=== PATIENT | female | born 1935 | race Caucasian/White ===

== ENCOUNTER 2019-01-17 10:40 | Inpatient (IN) ==
--- NOTE | 2019-01-17 11:10 | PROVIDER DOCUMENTATION ---
HPI-Musculoskeletal Pain/Inj - GENERAL Chief Complaint: Extremity Pain Stated Complaint: HIP / LEG PAIN Time Seen by Provider: 01/17/19 10:58 Source: patient - HX OF PRESENT ILLNESS-MUSKULOSKELTAL Nature of Presenting Problem: Patient is an 83yo F who presents w/ c/o R hip and leg pain that began yesterda y. Patient denies any known injury. Reports she is unable to bear weight on her R leg. States pain in R leg radiates from hip to above her R knee. Reports she took Tylenol yesterday without improvement. Sensation intact. +2 R dorsalis pedis pulse. Patient denies any back pain, incontinence, fever/chills, CP, or SOB. Non-toxic in appearance. Quality of Pain: reports: aching Severity in ED: moderate Onset/Duration: 24 hours ago Timing: still present Modifying Factors: improves with: lying down, rest. worse with: movement, palpation Any recent injury?: No Locality of Occurance: Home Similar Symptoms Previously?: No Recently seen or treated by another doctor?: No - HIP/PELVIS PAIN/INJURY Hip Pain Location: reports: hip (R) Pain Radiation: reports: upper legs (above R knee) Context / Method of Injury: reports: unknown Associated Symptoms: reports: weakness in legs/feet. denies: loss of bladder control, loss of bowel control, lower back pain, numbness in legs/feet, sensory/motor loss, tingling in legs/feet Review of Systems - Adult - REVIEW OF SYSTEMS - ADULT Constitutional: reports: no symptoms reported. denies: chills, fever Eyes: reports: no symptoms reported Ears, Nose, Mouth & Throat: reports: no symptoms reported Cardiovascular: reports: no symptoms reported. denies: chest pain, palpitations Respiratory: reports: no symptoms reported. denies: cough, shortness of breath Gastrointestinal: reports: no symptoms reported. denies: abdominal pain, nausea, vomiting Genitourinary: reports: no symptoms reported Musculoskeletal: reports: see HPI, joint pain, muscle weakness Integumentary: reports: no symptoms reported Neurological: reports: no symptoms reported. denies: dizziness/vertigo, headac he/migraines Psychiatric: reports: no symptoms reported Endocrine: reports: no symptoms reported Past History - Adult - PAST MEDICAL HISTORY-ADULT Review of Records: reports: Nursing Assessment Review, Medications Reviewed, Social history reviewed & non-contributory. - IMMUNIZATION STATUS Childhood Immunizations: See Nurse Assessment Flu Vaccine: See Nurse Assessment - FAMILY HISTORY Family History: reviewed, not pertinent - SOCIAL HISTORY Smoking: quit greater than 1 year Physical Exam-Injury Related - Physical Exam-Injury Related Initial Vital Signs Reviewed: Yes General Appearance: appears well, alert, no apparent distress. negative: lethargic, slow to respond, obtunded Eyes: PERRL/EOMI, pink conjunctivae. negative: EOM palsy, scleral icterus Head, Ears, Nose, Mouth & Throat: normocephalic/atraumatic, moist mucous membranes Neck: full range of motion, supple, normal inspection. negative: limited range of motion Respiratory: chest non-tender, lungs clear, normal breath sounds, no pleuratic chest pain, no respiratory distress, no accessory muscle use. negative: crackles, rales, rhonchi, stridor, retractions, splinting Cardiovascular: regular rate, rhythm Peripheral Pulses: dorsalis-pedis (R): 2+, dorsalis-pedis (L): 2+ Back Exam: normal inspection, no CVA tenderness, no vertebral tenderness. negative: vertebral tenderness Extremity: normal inspection, no pedal edema, no calf tenderness, normal capillary refill, tenderness (R hip point tenderness). negative: normal gait (unable to bear weight R leg), deformity, erythema, swelling Integumentary: normal color, warm/dry. negative: cyanosis, jaundice, pallor Neurologic: grossly normal. negative: aphasia, EOM palsy Psych/Mental Status: normal mood/affect, normal thought content, normal thought process, oriented x 3 - Glascow Coma Score Best Eye Response (Dianelys): (4) open spontaneously Best Verbal Response (Prince): (5) oriented Best Motor Response (Dianelys): (6) obeys commands Prince Total: 15 Progress - PLAN OF CARE/RESULTS Progress/Plan/Lab Results: Vital Signs - 8 hr 01/17/19 10:41 01/17/19 15:17 Temperature 98.2 F 98 F Pulse Rate 74 76 Respiratory Rate 18 18 Blood Pressure 122/48 176/74 O2 Sat by Pulse Oximetry 95 94 L Laboratory Results - last 24 hr 01/17/19 01/17/19 01/17/19 11:20 14:01 14:20 WBC 3.93 L RBC 3.34 L Hgb 10.3 L Hct 32.5 L MCV 97.3 MCH 30.8 MCHC 31.7 L RDW Std Deviation 13.2 Plt Count 127 L MPV 11.2 H Immature Gran % (Auto) 0.0 Neut % (Auto) 58.9 Lymph % (Auto) 22.1 [place] % (Auto) 12.7 H Eos % (Auto) 5.3 Baso % (Auto) 1.0 H Immature Gran # (Auto) 0.00 Neut # (Auto) 2.31 Lymph # (Auto) 0.87 L [place] # (Auto) 0.50 Eos # (Auto) 0.21 Baso # (Auto) 0.04 PT INR PTT (Actin FS) Sodium Potassium Chloride Carbon Dioxide Anion Gap BUN Creatinine Estimated GFR/1.73 m2 BUN/Creatinine Ratio Glucose Calculated Osmolality Calcium Total Bilirubin AST ALT Alkaline Phosphatase Total Protein Albumin Globulin Albumin/Globulin Ratio Urine Source CLEAN CATCH CATH Urine Color YELLOW YELLOW Urine Clarity SL. CLOUDY A CLEAR Urine pH 5.0 8.0 Ur Specific Belle 1.015 1.010 Urine Protein NEGATIVE NEGATIVE Urine Ketones NEGATIVE NEGATIVE Urine Blood NEGATIVE NEGATIVE Urine Nitrite NEGATIVE NEGATIVE Urine Bilirubin NEGATIVE NEGATIVE Urine Urobilinogen NORMAL NORMAL Urine Microscopic RBC Not Reportable <10 Urine WBC TRACE A NEGATIVE Urine Microscopic WBC <10 Ur Epithelial Cells <10 <10 Urine Crystals NONE SEEN Urine Bacteria NEGATIVE Urine Casts NONE SEEN Urine Yeast NONE SEEN Urine Glucose NEGATIVE NEGATIVE 01/17/19 01/17/19 14:20 14:20 WBC RBC Hgb Hct MCV MCH MCHC RDW Std Deviation Plt Count MPV Immature Gran % (Auto) Neut % (Auto) Lymph % (Auto) [place] % (Auto) Eos % (Auto) Baso % (Auto) Immature Gran # (Auto) Neut # (Auto) Lymph # (Auto) [place] # (Auto) Eos # (Auto) Baso # (Auto) PT 13.3 INR 0.96 PTT (Actin FS) 37.8 Sodium 143 Potassium 4.1 Chloride 107 Carbon Dioxide 26 Anion Gap 10 BUN 20 Creatinine 0.7 Estimated GFR/1.73 m2 > 60 BUN/Creatinine Ratio 29 Glucose 103 Calculated Osmolality 288 Calcium 9.3 Total Bilirubin 0.30 AST 78 H ALT 33 Alkaline Phosphatase 117 H Total Protein 6.7 Albumin 4.0 Globulin 3.0 Albumin/Globulin Ratio 1.0 Urine Source Urine Color Urine Clarity Urine pH Ur Specific Belle Urine Protein Urine Ketones Urine Blood Urine Nitrite Urine Bilirubin Urine Urobilinogen Urine Microscopic RBC Urine WBC Urine Microscopic WBC Ur Epithelial Cells Urine Crystals Urine Bacteria Urine Casts Urine Yeast Urine Glucose Orders Category Date Time Status Admit - [facility] Routine AdmDCTranf 01/17/19 14:22 Active Activity - Strict Bedrest ORDERED Care 01/17/19 13:26 Active Apply Mechanical Device [QM] ORDERED Care 01/17/19 15:17 Active DVT/PE Risk Assess/Protocol [QM] ORDERED Care 01/17/19 15:17 Active FSBS/Accucheck Result AC + HS Care 01/17/19 15:17 Active Miranda Cath Insertion ORDERED Care 01/17/19 13:26 Active Intake and Output-Strict ORDERED Care 01/17/19 15:17 Active Nursing- MD Consult Request ROUTINE Care 01/17/19 14:07 Active Saline Loc NOW Care 01/17/19 13:14 Completed Vital Signs Order ROUTINE Care 01/17/19 15:17 Active Z-Document. for Tele Applied ORDERED Care 01/17/19 15:21 Active Physician/Provider Consults Routine Cons 01/17/19 14:07 Ordered NPO Diet 01/17/19 13:26 Active XRAY PELVIS W/HIP 2-3VW RT [RAD] Stat Exams 01/17/19 11:05 Completed BASIC METABOLIC PANEL [CHEM] Routine Lab 01/18/19 06:00 Ordered CBC WITH DIFF [HEME] Routine Lab 01/18/19 06:00 Ordered CBC WITH ELECTRONIC DIFF [HEME] Stat Lab 01/17/19 14:20 Completed COMPREHENSIVE METABOLIC PANEL [CHEM] Stat Lab 01/17/19 14:20 Completed MAGNESIUM [CHEM] Routine Lab 01/18/19 06:00 Ordered PROTIME WITH INR [COAG] Routine Lab 01/18/19 06:00 Ordered PROTIME WITH INR [COAG] Stat Lab 01/17/19 14:20 Completed PTT [COAG] Stat Lab 01/17/19 14:20 Completed TSH Routine Lab 01/18/19 06:[address] W/POSS RFLX CULT [URINALYSIS] Stat Lab 01/17/19 11:[address] W/POSS RFLX CULT [URINALYSIS] Stat Lab 01/17/19 14:01 Completed 0.9% Sodium Chloride Inj [Ns] 1,000 ml Med 01/17/19 15:30 Discontinued IV 75 mls/hr Acetaminophen [Tylenol] Med 01/17/19 15:17 Ordered 650 mg PO Q6H PRN PRN Morphine Med 01/17/19 15:23 Ordered 2 mg IV Q3H PRN PRN Omeprazole [Prilosec] Med 01/18/19 09:00 Ordered 40 mg PO DAILY Ondansetron [Zofran] Med 01/17/19 15:17 Ordered 4 mg IV Q4H PRN PRN Oxygen Device Routine Oth 01/17/19 15:17 Active Telemetry [OM.EQ] Routine Oth 01/17/19 15:17 Active EKG [EKG] Stat Ther 01/17/19 13:14 Ordered Transfer/Admit Order [TRANSFER] Routine Transfer 01/17/19 14:22 Ordered Imaging results and plan of care discussed with patient. Patient notified of R femoral head fx and need for operative fixation. Patient notified that Ortho doctor content assistant, Dr. Juarez, was paged. Patient reports she already has an Orthopedic doctor in [place] who has performed her previous Orthopedic surgeries. Patient requests transfer to another hospital so her Orthopedic doctor can perform the operative fixation. Dr. Diop ([facility] order caller) reports that [facility] does not operate at any other hospital than [facility]. Patient refuses admission to [place] d/ negative past experience. Patient reports she will stay and be admitted to and have our Ortho perform fixation. Dr. uJarez paged. Dr. Juarez requests patient be transferred and admitted to Hospitalist for Operative Fixation. [facility] Hospitalist paged and will transfer patient to . Pre-Op labs ordered demonstrate stable anemia and leukopenia, which appear to be chronic but improving since last labs patient had drawn here. Other labs grossly unremarkable. Result Diagrams: 01/17/19 14:20 01/17/19 14:20 - XRAY 1 XRAY: Right XRAY Study: Pelvis, Hip Impression: See EMR Report ([facility] - [address], [address], [place] [address] [facility] - [address] [place] [address] Department of Imaging Patient: KRYSTAL MAGANA Date: 01/17/19MR#: [id number] : 8ADM [facility] [id number] Age/Sex: 83/FRoom/Bed: Loc: P.ED Ordering Physician: Tiffanie Barnes Family Physician: Mandy Orellana MD Reason for Procedure: Pain; unable to bear weight Signed EXAM: XRAY PELVIS W/HIP 2-3VW RT 01/17/2019 HISTORY: Pain; unable to bear weight TECHNIQUE: AP pelvis and right hip three views COMMENT: There is generalized osteopenia. There is joint space narrowing in both hips. There is an apparent minimally displaced subcapital fracture of the right femoral neck. IMPRESSION: Right femoral neck fracture. 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 Juarez, Ortho Time Discussed: 13:32 Reason/Comments: R femoral head fx Consult Disposition: Admit (admit to hospitalist at for operative fixation; Ann will consult), other #3 Consult: Dr. Mckenna, Hospitalist Time Discussed: 13:40 Reason/Comments: R femoral head fx Consult Disposition: Admit (Ann will consult) Departure - Departure Date of Disposition Decision: 08/11/19 Time of Disposition Decision: 13:40 DIAGNOSIS: Unable to bear weight Fracture of femoral head Qualifiers: Encounter type: initial encounter Fracture type: closed Laterality: right Qualified Code(s): S72.051A - Unspecified fracture of head of right femur, initial encounter for closed fracture Osteopenia Qualifiers: Osteopenia location: unspecified Qualified Code(s): M85.80 - Other specified disorders of bone density and structure, unspecified site Disposition: ADMITTED INPATIENT 09 Certified Medical Emergency: Emergent Condition: Stable - Critical Care Note This patient required my direct & personal management of CC.: No Attestation - Physician/ OLIVIA Attestation Patient care was provided by Advanced Practice Provider:: Yes Advanced Practice Provider:: Tiffanie Barnes Advanced Practice Provider documentation review:: The Mid-level provider documentation, treatment plan and medical decision making was reviewed by the physician who agrees with all treatment and medical decision making by the MLP. The physician spent face to face time with patient:: No Advanced Practice Provider documentation review:: Supervising physician onsite and consulted in the evaluation and care of this patient. The physician did not have a face to face encounter with the patient.
--- NOTE | 2019-01-17 11:52 | Diag Imaging Result Doc PS360 ---
EXAM: XRAY PELVIS W/HIP 2-3VW RT 01/17/2019 HISTORY: Pain; unable to bear weight TECHNIQUE: AP pelvis and right hip three views COMMENT: There is generalized osteopenia. There is joint space narrowing in both hips. There is an apparent minimally displaced subcapital fracture of the right femoral neck. IMPRESSION: Right femoral neck fracture. Electronically signed by Casey Malagon 01/17/2019 11:50 AM
[2019-01-17 12:13] LABS: BILIRUBIN URINE NEGATIVE (NEGATIVE); BLOOD URINE NEGATIVE (NEGATIVE); CLARITY SL. CLOUDY (CLEAR); COLOR YELLOW; GLUCOSE URINE NEGATIVE (NEGATIVE); KETONE URINE NEGATIVE (NEGATIVE); LEUKOCYTES URINE TRACE (NEGATIVE); NITRITE URINE NEGATIVE (NEGATIVE); PROTEIN URINE NEGATIVE (NEGATIVE); SP GRAVITY URINE 1.015; UROBILINOGEN URINE NORMAL
[2019-01-17 12:28] LABS: URINE EPITHELIAL CELLS <10 /HPF (<10); URINE SOURCE CLEAN CATCH
[2019-01-17 14:25] LABS: BASO# 0.04 X1000 (0.0-0.2); EOS# 0.21 X1000 (0.0-0.7); EOS% 5.3 % (0.0-10.0); HEMATOCRIT 32.5 % (37.0-47.0); HEMOGLOBIN 10.3 g/dL (12.0-16.0); LYMPH# 0.87 X1000 (1.2-3.4); LYMPH% 22.1 % (20.5-51.1); MCH 30.8 PG (27-31); MCHC 31.7 g/dL (33-37); MCV 97.3 FL (81-99); MONO% 12.7 % (1.7-9.3); MPV 11.2 FL (7.4-10.4); NEUT# 2.31 X1000 (1.4-6.5); NEUT% 58.9 % (42.2-75.2); PLT 127 X1000 (130-400); RBC 3.34 XMIL (4.2-5.4); RDW 13.2 % (11.5-14.5); WBC 3.93 X1000 (4.8-10.8)
[2019-01-17 14:32] LABS: BILIRUBIN URINE NEGATIVE (NEGATIVE); BLOOD URINE NEGATIVE (NEGATIVE); GLUCOSE URINE NEGATIVE (NEGATIVE); KETONE URINE NEGATIVE (NEGATIVE); LEUKOCYTES URINE NEGATIVE (NEGATIVE); NITRITE URINE NEGATIVE (NEGATIVE); PROTEIN URINE NEGATIVE (NEGATIVE); UROBILINOGEN URINE NORMAL
[2019-01-17 14:33] LABS: CLARITY CLEAR (CLEAR); COLOR YELLOW
[2019-01-17 14:38] LABS: URINE SOURCE CATH
[2019-01-17 14:41] LABS: URINE BACTERIA NEGATIVE /HFP; URINE CAST NONE SEEN /LPF; URINE CRYSTAL NONE SEEN /HPF; URINE EPITHELIAL CELLS <10 /HPF (<10); URINE RBC <10 /HPF (<10); URINE WBC <10 /HPF (<10); URINE YEAST NONE SEEN /HPF
[2019-01-17 14:44] LABS: AGAP 10; ALKALINE PHOSPHATASE 117 U/L (32-104); BUN 20 mg/dL (8-22); CALCIUM 9.3 mg/dL (8.8-10.2); CHLORIDE 107 mmol/L (98-107); COSMO 288; CREATININE 0.7 mg/dL (0.5-0.9); ESTIMATED GFR > 60; GLUCOSE 103 mg/dL (70-104); GOT 78 U/L (10-30); GPT 33 U/L (10-36); POTASSIUM 4.1 mmol/L (3.5-5.1); SODIUM 143 mmol/L (136-145); TCO2 26 mmol/L (25-35); TOTAL PROTEIN 6.7 g/dL (6.3-8.3)
[2019-01-17 15:14] LABS: INR 0.96; PROTIME 13.3 Seconds (11.0-16.0); PTT 37.8 Seconds (22.3-41.8)
[2019-01-17] MEDS ORDERED: NS 1,000 ML IV SCH (15:30)
[2019-01-17] MEDS: MORPHINE IV PRN ×2 (15:36→22:17)
[2019-01-17] MEDS: ZOFRAN IV PRN ×2 (15:37→22:17)
--- NOTE | 2019-01-17 16:33 | HISTORY AND PHYSICAL ---
ADDENDUM: Patient seen and examined by myself. Full note dictated and discussed with nurse practitioner. Patient presented to the hospital with left hip and left leg pain. Does not remember any kind of fall or injury. She has been sitting around more, but she states this is more due to the pain in her hip and leg area. It does appears as though she has a fracture of her femoral head on the right. We are going to transfer her to the surgeon at [facility] for fixation. cc: Hermelindo Mckenna MD
--- NOTE | 2019-01-17 16:38 | HISTORY AND PHYSICAL ---
PRIMARY CARE PHYSICIAN: Mandy Orellana MD. CHIEF COMPLAINT: Right hip pain. HISTORY OF PRESENT ILLNESS: Ms. Rincon is an 83-year-old female. She states that she started having right hip pain on Friday night. She was able to ambulate at that time. However, her hip did hurt her significantly. On Friday, her pain persisted. She was unable to ambulate and stayed in her recliner most of the day. Today when her pain persisted and she was still unable to get around, she decided to come to the ER. The patient states that she has severe osteoarthritis and has had multiple surgeries on multiple joints. The patient also has a history of hypertension, hyperlipidemia, atrial fibrillation, hypothyroidism, and diabetes. The patient did fall a year ago and actually broke her nose. Son and [id number] are at the bedside. The patient is lying in the bed. She is awake, alert, and oriented. She is complaining of severe pain to the right hip region. Upon inspection of the right hip, there are no actual wounds or any bruising. The right foot seems a little longer than the left foot. Hip and pelvis x-rays were performed that showed a right femoral neck fracture and also showed osteopenia. When I asked the patient if she had any fall, she did not have any falls or any trauma noted. The patient does state that she has been less mobile over the past 2 years because of multiple surgeries that she has had and her fall. PAST MEDICAL HISTORY: Hypertension, hyperlipidemia, atrial fibrillation, hypothyroidism, diabetes, falls at home, osteoarthritis. PAST SURGICAL HISTORY: Left shoulder replacement in April. Recent arthroscopy of the left knee where they found arthritis, a small tear, and actually placed cement into the bone fractures. A total knee replacement to the right knee 5 years ago. FAMILY HISTORY: Mother from breast cancer. Father from diabetes. SOCIAL HISTORY: The patient lives alone in [place], [place]. She does have family that live close by, her son and her [id number]. She denies any smoking, alcohol, or illicit drug abuse. ALLERGIES: Amoxicillin. HOME MEDICATIONS: Aspirin 81 mg p.o. daily. Calcium 500 mg p.o. daily. Cinnamon bark 500 mg p.o. daily. Furosemide 10 mg p.o. as directed. Gabapentin 300 mg p.o. t.i.d. Synthroid 12.5 mcg p.o. daily. Lisinopril/hydrochlorothiazide 20/12.5 mg 1 tablet p.o. b.i.d. Centrum Silver tablet 1 tablet p.o. daily. Pioglitazone HCL 15 mg p.o. daily. Ultram 50 mg p.o. q.6 hours p.r.n. pain. LABORATORY AND DIAGNOSTICS: White blood cell count 3.93, red blood cell count 3.34, hemoglobin 10.3, hematocrit 32.5, platelet count 127,000. PT is 13.3, INR is 0.96, PTT is 37.8. Sodium is 143, potassium is 4.1, chloride is 107, carbon dioxide 26, anion gap 10, BUN is 20, creatinine is 0.7, GFR is greater than 60, glucose is 103, osmolality is 288, calcium is 9.3, total bilirubin is 0.30, AST 78, ALT is 33, alkaline phosphatase is 117. Urinalysis is negative. IMAGING: X-ray of the hip and pelvis shows a right femoral neck fracture and osteopenia. REVIEW OF SYSTEMS: A 10-point review of systems has been obtained. All are negative except what is stated above in the HPI. PHYSICAL EXAMINATION: VITAL SIGNS: Temperature 98.2 degrees, pulse rate 74, respiratory rate 18, blood pressure is 122/48, O2 saturations 95% on room air. Weight is 209 pounds. Height is 5 feet 4 inches. GENERAL: This is an 83-year-old female. She is lying on the ER stretcher. She is in somewhat acute distress, complaining of right hip pain. She is well nourished and well developed. HEENT: Atraumatic, normocephalic. Pupils are equal, round, and reactive to light. Extraocular movements are intact. Sclerae are icteric. Mucous membranes are moist. NECK: Supple. No lymphadenopathy. Trachea is midline. No JVD. No thyromegaly. No bruits. CARDIOVASCULAR: Regular rate and rhythm. No murmurs, gallops, or rubs appreciated. RESPIRATORY: Lung sounds are clear with equal chest excursion. Respirations are nonlabored. No accessory muscle usage. GI: Abdomen is soft, nontender, nondistended. Bowel sounds are present x4. NEUROLOGIC: Cranial nerves 2-12 are intact. The patient is awake, alert, oriented, and able to follow all commands. MUSCULOSKELETAL: The patient has positive distal strength noted. She does have a severe pain noted to the right hip and leg region. Her right leg seems to be a little longer than the left leg. She is able to move this leg but it is very painful. EXTREMITIES: No clubbing, no cyanosis. There is bilateral leg edema noted. The right leg is longer than the left leg. DP and PT pulses are present and palpable. SKIN: Warm, dry, and intact. There are no rashes. No bruises. No diaphoresis. ASSESSMENT AND PLAN: 1. Right hip fracture. We are going to transfer this patient to [facility]. She is going to be seen by Dr. Juarez, the orthopedic surgeon. We are going to keep her n.p.o. at this time in case of surgery today. I am going to give her morphine for her hip pain 2 mg IV q.3 hours. We can give her Zofran for nausea. She is not complaining of any nausea at this time. 2. Diabetes. We are going to check her fingersticks, and we can provide her with sliding scale insulin as needed. 3. Hypertension. I am holding off on her home medications at this time, because she is n.p.o. Her blood pressure is a little elevated at this time; however, she is in some pain. We will continue to monitor this and provide her with p.r.n. blood pressure medicine as-needed. 4. History of atrial fibrillation. Heart rate is 74 at this time. It sounds like it is in a regular rhythm at this time. We are going to place her on cardiac monitor. 5. Hypothyroidism. Patient is on home Synthroid. We will continue this dose once her home medication reconciliation has been performed. 6. Deep venous thrombosis prophylaxis. We will hold off on any blood thinners at this time, and we will wait for surgery's recommendations on that. I am going to go ahead and put her on some SCDs. 7. Gastrointestinal prophylaxis. Start her on Prilosec daily. We are transferring this patient to [facility]. We have consulted Dr. Juarez for orthopedics. We are going to hold her n.p.o. at this time in case she has surgery today. We are going to do Accu-Cheks a.c. and at bedtime. She does have a Miranda in. Urine output seems to be good. She does have a little edema noted to the lower extremities, so we are not going to start her on any IV fluid hydration at this time. We are going to start her on some p.r.n. pain medication, and all other further recommendations pending hospital course and lab data. Dictated by EMY Long for Hermelindo Mckenna MD cc: MD Odilon Fleming MD MTDD
[2019-01-17] MEDS: HUMULIN R SUBQ SCH ×2 (17:58→21:29)
--- NOTE | 2019-01-17 20:03 | Diag Imaging Result Doc PS360 ---
EXAM: CT PELVIS W/O CONTRAST 01/17/2019 HISTORY: poss hip fracture TECHNIQUE: This exam was performed using automated exposure control, adjustment of mA or kV according to patient size, and/or use of iterative reconstruction technique. COMMENT: There is vacuum disc phenomenon at L5-S1. There is generalized osteopenia. There is osteophyte formation in both femoral heads. There is no evidence of acute fracture or dislocation. There is a Miranda catheter in the bladder. There is a large amount of stool in the rectosigmoid colon. There is a prosthetic device in the pelvis between the rectum and the urinary bladder. IMPRESSION: No evidence of acute bony abnormality. Electronically signed by Casey Malagon 01/17/2019 8:01 PM
[2019-01-17] MEDS ORDERED: MEDROL DOSEPAK PO SCH (20:45)
[2019-01-17] MEDS ORDERED: MEDROL PO SCH (21:00)
[2019-01-17] MEDS: TYLENOL PO PRN (22:23)
[2019-01-18 05:52] LABS: BASO# 0.03 X1000 (0.0-0.2); EOS# 0.28 X1000 (0.0-0.7); EOS% 8.9 % (0.0-10.0); HEMATOCRIT 29.6 % (37.0-47.0); HEMOGLOBIN 9.3 g/dL (12.0-16.0); LYMPH# 0.91 X1000 (1.2-3.4); LYMPH% 28.9 % (20.5-51.1); MCH 30.7 PG (27-31); MCHC 31.4 g/dL (33-37); MCV 97.7 FL (81-99); MONO# 0.37 X1000 (0.11-0.59); MONO% 11.7 % (1.7-9.3); MPV 11.3 FL (7.4-10.4); NEUT# 1.56 X1000 (1.4-6.5); NEUT% 49.5 % (42.2-75.2); PLT 126 X1000 (130-400); RBC 3.03 XMIL (4.2-5.4); WBC 3.15 X1000 (4.8-10.8)
[2019-01-18 05:54] LABS: AGAP 6; BUN 16 mg/dL (8-22); CALCIUM 9.4 mg/dL (8.8-10.2); CHLORIDE 108 mmol/L (98-107); COSMO 285; CREATININE 0.7 mg/dL (0.5-0.9); ESTIMATED GFR > 60; GLUCOSE 106 mg/dL (70-104); MAGNESIUM 1.6 mg/dL (1.5-2.7); POTASSIUM 4.2 mmol/L (3.5-5.1); SODIUM 142 mmol/L (136-145); TCO2 28 mmol/L (25-35)
[2019-01-18 05:55] LABS: INR 1.13; PROTIME 14.6 Seconds (11.0-16.0)
[2019-01-18] MEDS: HUMULIN R SUBQ SCH ×4 (06:43→21:54)
[2019-01-18] MEDS: PRILOSEC PO SCH (06:59)
[2019-01-18] MEDS: TYLENOL PO PRN (06:59)
[2019-01-18] MEDS: NORCO-7.5 PO PRN ×2 (11:40→22:24)
[2019-01-18] MEDS: ACTOS PO SCH (13:46)
[2019-01-18] MEDS: PRINIVIL PO SCH (13:47)
[2019-01-18] MEDS: NORVASC PO SCH (13:47)
[2019-01-18] MEDS: NEURONTIN PO SCH ×2 (13:48→22:23)
--- NOTE | 2019-01-18 14:00 | PROGRESS NOTE ---
DATE: 01/18/2019 SUBJECTIVE: The patient is sitting at the bedside. She is complaining of pain that runs from the right gluteal area to the knee. I do not see any deformity. It is really painful to mobilization and when she tries to stand up. She was sent over here due to the possibility of right hip fracture. I evaluated this patient and the images, and I did not see any fracture, but I will let the Orthopedic Surgery Department evaluate this patient. OBJECTIVE: Vital signs: Temperature is 97.7, pulse 60, respiratory rate 16, blood pressure 154/58, oxygen saturation 92% on room air. HEENT: Head is atraumatic and normocephalic. PERRLA. Neck: Supple. No JVD. No masses. Central trachea. Chest: Clear to auscultation. No wheezing or rales. Abdomen: Soft, nontender, nondistended. No hepatosplenomegaly. Extremities: Painful to palpation at the level of the knee and gluteal area and is also painful to mobilization. She is not able to stand up because of the pain. Limited motion. Neurologic: Alert and oriented x3. No focal deficits. DIAGNOSTIC DATA: WBC is 3.1, hemoglobin 9.3, hematocrit 29.6, platelets 426. Sodium is 142, potassium 4.2, chloride 108, bicarbonate 28, BUN is 16, creatinine 0.7, glucose 106, calcium 9.4, magnesium 1.6. ASSESSMENT AND PLAN: 1. Right lower extremity pain. The patient has been transferred from [facility] for the possibility of right hip fracture. CT scan did not show any bone lesion. She will be evaluated by Dr. Juarez and will start from there. It looks like a sciatica type of pain. 2. Diabetes. Continue with same management. I will put her back on her home medications. 3. History of atrial fibrillation. Rate control, is not arrhythmic, and I did not see any blood thinners on her home medications. 4. Hypothyroidism. Continue with Synthroid. 5. DVT prophylaxis. I will wait for Orthopedic Surgery's recommendations. 6. GI prophylaxis. Continue with same management. cc: Cesar Julian MD
[2019-01-18] MEDS ORDERED: MEDROL DOSEPAK PO SCH (15:30)
--- NOTE | 2019-01-18 16:04 | Diag Imaging Result Doc PS360 ---
LUMBAR SPINE 2-VIEWS - 01/18/2019 INDICATION: Right leg radicular pain TECHNIQUE: COMPARISON: None FINDINGS: Alignment is anatomic. Vertebral body heights are preserved. There are high-grade compression fractures at T11, L1 and L2, with about 50% loss of height. There is also mild compression deformity centrally at L3 and L4. These likely indicate fragility fractures. There is also advanced multilevel degenerative disc disease mostly at the lower thoracic spine. Sacroiliac joints are clear. IMPRESSION: Several compression fractures. Advanced multilevel degenerative disc disease. Electronically signed by Heriberto Yee 01/18/2019 4:01 PM
--- NOTE | 2019-01-18 16:19 | ORTHOPAEDICS CONSULTATION ---
DATE: 01/18/2019 CHIEF COMPLAINT: Right leg pain and inability to ambulate. HISTORY OF PRESENT ILLNESS: Mariela Rincon is an 83-year-old female who began having right hip and leg pain down to her knee on Friday, it has gotten progressively worse to the point that she was admitted to the hospital yesterday at [place]. I was asked to see her for possible hip fracture. On examination yesterday, she did have pain with range of motion of her hip, but no obvious deformity. I obtained a CT scan which showed no evidence of a hip fracture. She continues to complain of pain and inability to weight bear. PAST MEDICAL HISTORY: Includes hypertension, hyperlipidemia, atrial fibrillation, hypothyroidism, diabetes, osteoporosis, osteoarthritis. PAST SURGICAL HISTORY: Left total shoulder arthroplasty, a right total knee arthroplasty, arthroscopy of the left knee. FAMILY HISTORY: Includes breast cancer from mother and diabetes from father. SOCIAL HISTORY: She denies tobacco, alcohol, or drug abuse. ALLERGIES: Penicillin. HOME MEDICATIONS: See admission list. REVIEW OF SYSTEMS: A 10-point review of systems has been obtained. All are negative except as noted and the history of present illness. PHYSICAL EXAMINATION: General: Well-developed, well-nourished female. She is alert and cooperative with exam. Exam of her hip reveals pain with range of motion. Her leg is otherwise neurovascularly intact. ASSESSMENT: Right hip pain. PLAN: Her pain really seems to be in her buttock radiating down to her knee. I suspect this is coming from her back. She is just on Glucophage so I am going to place her on steroid Dosepak. She has had 1 of these before. I am also going to get back x-rays. We may need to get a MRI of her back at some point. I may also consider a bone scan, depending upon what the back x-rays look like tomorrow morning. Otherwise, we will continue working with physical therapy. cc: Odilon Juarez MD
[2019-01-18] MEDS: MEDROL PO SCH (22:23)
[2019-01-19] MEDS: SYNTHROID PO SCH (06:38)
[2019-01-19] MEDS: PRILOSEC PO SCH (06:38)
[2019-01-19] MEDS: HUMULIN R SUBQ SCH ×4 (07:25→22:10)
[2019-01-19] MEDS ORDERED: DULCOLAX PR ONE (08:25)
[2019-01-19] MEDS ORDERED: DULCOLAX PR PRN (08:25)
[2019-01-19] MEDS: NEURONTIN PO SCH ×3 (08:53→22:18)
[2019-01-19] MEDS: MEDROL PO SCH ×3 (08:53→22:18)
[2019-01-19] MEDS: COLACE PO SCH (08:53)
[2019-01-19] MEDS: ASPIRIN PO SCH (08:53)
[2019-01-19] MEDS: ACTOS PO SCH (08:54)
[2019-01-19] MEDS: METAMUCIL POWDER PACKET PO SCH ×2 (08:54→22:19)
[2019-01-19] MEDS: PRINIVIL PO SCH (08:56)
[2019-01-19] MEDS: NORVASC PO SCH (08:56)
[2019-01-19] MEDS ORDERED: METAMUCIL POWDER PACKET PO SCH (09:00)
[2019-01-19] MEDS: NORCO-7.5 PO PRN (09:50)
[2019-01-19] MEDS: MIRALAX PO SCH (09:51)
--- NOTE | 2019-01-19 10:15 | PROGRESS NOTE ---
DATE: 01/19/2019 Ms. Rincon presented with right hip pain on 01/17/2019. She started having right hip pain and was able to ambulate at that time. However, her hip hurt significantly. The following day, it persisted, unable to ambulate, and stayed in a recliner most the day. Then brought in the following day. Came to the emergency room. Severe osteoarthritis, multiple surgeries in multiple joints. The patient has had a history of hypertension, hyperlipidemia, atrial fibrillation, hypothyroidism, and diabetes. The patient did fall about a year ago and broke her nose. Son and [id number] are at the bedside. The patient is lying in bed, complaining of severe right hip pain. Upon inspection of the right hip, there were no actual wounds or any bruising. Right foot seemed a little longer than the left. However, on further exam with orthopedic, no deformity. X- rays did not reveal any fracture of the hip. She had a hip and pelvic x-ray on 01/17/2019 which was a questionable right femoral neck fracture read at that time. Pelvic CT though on 01/17/2019, no evidence of acute bony abnormality. Lumbar spine films, several compression fractures, advanced multiple degenerative disk disease. Orthopedics saw her, Dr. Yang Juarez. The pain seems to be in her buttock, radiating down to her knee. Suspect it is coming from her back. He placed her on a Medrol Dosepak and plan is to get an MRI of her back. She states she is feeling better today. Less pain. She is on the bedside commode. PHYSICAL EXAMINATION: Temperature 97.9 degrees, pulse 84, respirations 16, blood pressure 152/64. Pupils are equal and round. Lungs are clear in all lung fitzgerald. Cardiovascular Examination: Regular rhythm and rate without murmur or S3. Abdomen is soft. Skin is warm and dry. ASSESSMENT AND PLAN: 1. Right lower extremity pain. Has been transferred from [facility]. Possibility of right hip fracture. CT scan did not show any bony lesion in evaluating her lower back on MRI today. 2. Diabetes mellitus type 2. Sugar is under good control. 3. History of atrial fibrillation, rate is controlled. 4. Hypothyroidism, on Synthroid. 5. Deep venous thrombosis prophylaxis. Continue current regimen. cc: Rei Borges MD
--- NOTE | 2019-01-19 10:42 | Diag Imaging Result Doc PS360 ---
EXAM: MRI LUMBAR SPINE W/CONTRAST 01/19/2019 HISTORY: Lumbar compression fractures with right leg TECHNIQUE: T1-T2 and STIR sagittal, T1 and T2 axial, post gadolinium fat sat T1 sagittal and axial T1. COMMENT: There is biconcavity of the L1, L2, L4, and L5 vertebral bodies and to a lesser extent at L3. There is slight bone marrow edema in the area of the upper endplate of L1 more so to the right than the left. These findings were largely present on the previous plain radiograph series of 01/18/2019. There is no evidence of intrathecal mass. There is severe spinal stenosis at the L3-4 level due to disc bulge and particularly due to facet disease with hypertrophy of the ligamenta flava. At the L1-2 level there is no spinal or foraminal stenosis At L2-3 there is no spinal or foraminal stenosis. At L4-5 there is no spinal or foraminal stenosis. At L5-S1 there is disc bulge and may be some degree of lateral foraminal stenosis on the left. There is some gadolinium enhancement in the upper endplate and central body of L1 and also to the adjoining endplates at the L5-S1 level on the left. The latter may relate to Modic type I change. IMPRESSION: Multiple old lumbar compression fractures presumably due to osteoporosis. The possibility of a relatively acute compression or exacerbation of compression of the L1 vertebral body is suggested. Modic type I changes at L5 5 S1. Spinal stenosis at L3-4. Other nonacute findings as described above. Electronically signed by Casey Malagon 01/19/2019 10:40 AM
[2019-01-19] MEDS: LIPITOR PO SCH (22:18)
[2019-01-20] MEDS: NORCO-7.5 PO PRN (02:57)
[2019-01-20] MEDS: PRILOSEC PO SCH (06:44)
[2019-01-20] MEDS: SYNTHROID PO SCH (06:44)
[2019-01-20] MEDS: HUMULIN R SUBQ SCH ×3 (06:45→18:40)
[2019-01-20] MEDS: NEURONTIN PO SCH ×2 (07:59→14:34)
[2019-01-20] MEDS: MEDROL PO SCH ×3 (08:00→18:41)
[2019-01-20] MEDS: METAMUCIL POWDER PACKET PO SCH (08:01)
[2019-01-20] MEDS: ACTOS PO SCH (08:01)
[2019-01-20] MEDS: COLACE PO SCH (08:01)
[2019-01-20] MEDS: NORVASC PO SCH (08:02)
[2019-01-20] MEDS: PRINIVIL PO SCH (08:02)
[2019-01-20] MEDS: ASPIRIN PO SCH (08:02)
[2019-01-20] MEDS: MIRALAX PO SCH (08:04)
[2019-01-20] MEDS ORDERED: LASIX PO SCH (09:00)
--- NOTE | 2019-01-20 10:17 | PROGRESS NOTE ---
DATE: 01/20/2019 SUBJECTIVE: Ms. Rincon does feel better. She is ambulating better with less pain. OBJECTIVE: Vital Signs: Temp is 98 degrees, pulse 59, respirations 20, blood pressure 151/55. HEENT: Pupils are equal and round. Lungs: Clear in all lung fitzgerald. Cardiovascular: Regular rhythm and rate without murmur or S3. Abdomen: Soft. Skin: Warm and dry. Urine output is 5200 mL. ASSESSMENT AND PLAN: 1. Lumbar spine MRI showed multiple old lumbar compression fractures, presumably due to osteoporosis, possibility of relatively acute compression or exacerbation of compression of the L1 vertebrae body is suggested. There is a Modic type 1 change in L5 to S1. Spinal stenosis, L3-4. No other acute findings. She seems to be doing better clinically. Will see how we do, but possibly she may get to go home or go to rehab soon. 2. Diabetes mellitus type 2. Sugar is under good control. 3. History of atrial fibrillation. 4. Hypothyroidism, appears euthyroid, on Synthroid. 5. She is on deep venous thrombosis prophylaxis. REVIEW OF ORDERS: Continue present orders. cc: Rei Borges MD
[2019-01-20] MEDS ORDERED: CEPACOL SORE THROAT LOZENGE MT PRN (12:58)
--- NOTE | 2019-01-20 13:21 | ORTHOPAEDICS PROGRESS NOTE ---
DATE: 01/20/2019 SUBJECTIVE: Mariela Rincon is an 83-year-old female with right leg radiculopathy. She states she is much improved. She is complaining of the back brace primarily. OBJECTIVE: She is a well-developed, well-nourished female. She is alert and cooperative with examination. She is sitting up in a chair. She is ambulating well with physical therapy. Her leg is neurovascularly intact grossly. Her MRI showed marked severe stenosis at L3-4 and there was a possibility of acute on chronic compression fracture of L1 although she really does not have any specific back pain. She also has lateral foraminal stenosis on the left at L5-S1 but I think that is not symptomatic. I think her primary problem is likely the spinal stenosis. IMPRESSION: Spinal stenosis with right leg radiculopathy. PLAN: This is classic for stenosis to be not significantly painful while she is in bed and then be painful with walking. She is much improved, however, and is doing well. She actually wants to go home, although she may require rehab. If she is ambulating well and the family wishes her to go home, then I am agreeable to that. She could probably go to either rehab or home tomorrow. cc: Odilon Juarez MD
[2019-01-21] MEDS: NEURONTIN PO SCH ×3 (00:24→14:02)
[2019-01-21] MEDS: LIPITOR PO SCH (00:24)
[2019-01-21] MEDS: HUMULIN R SUBQ SCH ×4 (00:25→15:57)
[2019-01-21] MEDS: MEDROL PO SCH ×3 (00:25→12:22)
[2019-01-21] MEDS: METAMUCIL POWDER PACKET PO SCH ×2 (02:11→09:09)
[2019-01-21] MEDS: SYNTHROID PO SCH (06:54)
[2019-01-21] MEDS: PRILOSEC PO SCH (06:54)
--- NOTE | 2019-01-21 07:36 | PROGRESS NOTE ---
DATE: 01/21/2019 SUBJECTIVE: Ms. Rincon is feeling better. She is able to walk around. She is hoping she gets to go home. I think the family would like to pursue rehab. OBJECTIVE: Temperature 97.5 degrees, pulse 62, respirations 18, blood pressure 140/90. Pupils are equal and round. Lungs are clear in all lung fitzgerald. Cardiovascular Examination: Regular rhythm and rate without murmur or S3. Urine output is 1200 mL. ASSESSMENT AND PLAN: 1. Spinal stenosis, right leg radiculopathy. Apparently, this is classic for stenosis. It is not significantly painful when she is bed and then painful with walking. She is much improved, wants to go home. Family, I think, would like her to go to rehab so we will have that discussion today. 2. Diabetes mellitus type 2. Sugar is under good control. 3. History of atrial fibrillation. 4. Hypothyroidism. 5. On deep venous thrombosis prophylaxis. REVIEW OF ORDERS: I do not see any change at this point. cc: Rei Borges MD
[2019-01-21] MEDS: ACTOS PO SCH (09:07)
[2019-01-21] MEDS: NORVASC PO SCH (09:08)
[2019-01-21] MEDS: MIRALAX PO SCH (09:08)
[2019-01-21] MEDS: PRINIVIL PO SCH (09:08)
[2019-01-21] MEDS: ASPIRIN PO SCH (09:08)
[2019-01-21] MEDS: COLACE PO SCH (09:08)
--- NOTE | 2019-01-21 10:17 | Diag Imaging Result Doc PS360 ---
EXAM: CHEST-1 VIEW HISTORY: REHAB TECHNIQUE: Chest single view COMPARISON: 01/01/2018 FINDINGS: The lungs are well expanded. The heart is not enlarged. The vessels are not distended. There are no infiltrates. No effusion identified. Orthopedic replacement of the left shoulder since the prior exam. IMPRESSION: No acute abnormality. Electronically signed by Sajan Paris 01/21/2019 10:15 AM
[2019-01-21 12:18] VITALS: BP 136/56
--- NOTE | 2019-01-21 16:03 | DISCHARGE SUMMARY ---
ADMISSION DATE: 01/17/2019 DISCHARGE DATE: 01/21/2019 HISTORY AND HOSPITAL COURSE: She presented with right hip pain. She is a patient of Dr. Mandy Orellana. She is an 83-year-old female who states that she started having right hip pain a couple nights previous. Was able to ambulate at the time. However, her hip did hurt her significantly; this was Friday. On the following day, Friday the pain persisted and was unable to ambulate, just stayed in a recliner most the day. The day of admission, when her pain persisted she was still able to get around but decided to come to the emergency room. She has had a history of severe osteoarthritis with multiple surgeries in multiple joints. The patient has had a history of hypertension, hyperlipidemia, atrial fibrillation, hypothyroidism, diabetes mellitus. The patient did fall a year ago and broke her nose. Son and [id number] are at the bedside. The patient was lying in bed. She is awake and alert. She was complaining of severe pain in her right hip region. Upon inspection of the right hip, there was no actual wounds or any bruising. The right leg seemed a little longer than the left. Hip and pelvis x-rays were performed and suggested right femoral neck fracture and showed osteopenia. She does not have any history of falls and so was sent here to [place]. Presented here in the hospital. Dr. Yang Juarez evaluated. Pelvic CT was done. No evidence of acute bony abnormality. It appeared that her symptoms were consistent with lumbosacral stenosis. She did have lumbar films and she has several compression fractures, advanced multilevel degenerative disk disease. She had a lumbar spine MRI which showed multiple old lumbar compression fractures, presumably due to osteoporosis. Possibility of relatively acute compression or exacerbation compression on L1 vertebrae is suggested. She had Modic type 1 changes in L5 and S1, spinal stenosis L3 and 4. The patient was able to be fitted with a brace and was able to ambulate. She wanted to go home and planning on going to [facility] for physical therapy. Her symptoms are classic for spinal stenosis, not significantly painful when she is in the bed and then painful with walking. However, she is doing well. She wants to go home, so we will get her ready to go home. DISCHARGE MEDICATIONS: Norvasc 5 mg daily, aspirin 81 mg a day, Lipitor 40 mg at bedtime, Colace 200 mg daily, Neurontin 300 mg at bedtime and then 600 mg I think at 8 o'clock and 600 mg at 1400, Tarzana 7.5 mg q.3 hours p.r.n., Synthroid 12.5 mcg p.o. daily, Prinivil 20 mg a day, Prilosec 20 mg a day, Actos 15 mg daily, MiraLAX 17 g daily, Metamucil 2 tablespoons p.o. b.i.d. cc: Rei Borges MD
== END 2019-01-21 16:33 | disposition home health service (06) | DRG 552 ==
LOC: P.ED 10:40 → SUATTDRO 15:35 → 4N 15:35
PROVIDERS: ATTEND Emergency Medicine